=== PATIENT | female | born 1965 | race Caucasian/White ===

== ENCOUNTER 2017-05-03 19:44 | Emergency (ER) | payer MEDICAID ==
[~2017-05-03] VITALS: Ht 154.9 cm; Wt 90.9 kg
[2017-05-03 20:53] LABS: BASOPHILS % (AUTO) 0.3 % (0-1); EOSINOPHILS # (AUTO) 0.4 X10'3 (0-0.9); EOSINOPHILS % (AUTO) 3.8 % (0-6); HEMATOCRIT 34.5 % (35.0-45.0); HEMOGLOBIN 11.6 g/dl (12.0-16.0); LYMPHOCYTES # (AUTO) 1.9 X10'3 (1.1-4.8); LYMPHOCYTES % (AUTO) 16.7 % (21-51); MEAN CORPUSCULAR HEMOGLOBIN 28.3 PG (27.0-31.0); MEAN CORPUSCULAR HGB CONC 33.5 % (33.0-36.5); MEAN CORPUSCULAR VOLUME 84.5 FL (78-98); MEAN PLATELET VOLUME 9.6 FL (7.4-10.4); MONOCYTES # (AUTO) 0.8 X10'3 (0-0.9); MONOCYTES % (AUTO) 6.9 % (2-12); NEUTROPHILS # (AUTO) 8.4 X10'3 (1.8-7.7); NEUTROPHILS % (AUTO) 72.3 % (42-75); PLATELET COUNT 303 X10'3 (140-440); RED BLOOD COUNT 4.09 X10'6 (4.20-5.60); RED CELL DISTRIBUTION WIDTH 16.5 % (11.5-14.5); WHITE BLOOD COUNT 11.7 X10'3 (4.5-11.0)
[2017-05-03 21:02] LABS: PARTIAL THROMBOPLASTIN TIME 23 SECONDS (22-32); PROTHROMBIN TIME 9.9 SECONDS (9.0-12.0)
[2017-05-03 21:04] LABS: ALANINE AMINOTRANSFERASE 26 U/L (12-78); ALBUMIN 2.7 G/DL (3.4-5.0); ALBUMIN/GLOBULIN RATIO 0.6 (1.1-1.5); ALKALINE PHOSPHATASE 73 IU/L (46-116); ANION GAP 13 (8-16); ASPARTATE AMINO TRANSFERASE 10 U/L (10-37); BILIRUBIN,TOTAL 0.4 MG/DL (0.1-1.0); BLOOD UREA NITROGEN 13 MG/DL (7-18); BUN/CREATININE RATIO 11.1 (6.6-38.0); CALCIUM 8.5 MG/DL (8.5-10.1); CHLORIDE 108 MMOL/L (99-107); CREATININE 1.17 MG/DL (0.40-0.90); GLUCOSE 167 MG/DL (70-104); POTASSIUM 3.7 MMOL/L (3.5-5.1); SODIUM 143 MMOL/L (135-145); TOTAL CARBON DIOXIDE 22.1 MMOL/L (24-32); TOTAL PROTEIN 6.9 G/DL (6.4-8.2); eGFR 49 ML/MIN
[2017-05-03 21:29] LABS: CLARITY,URINE Clear (Clear); COLOR,URINE Yellow (Yellow); GLUCOSE, URINE Negative (Neg); KETONES,URINE Negative (Neg); LEUKOCYTE ESTERASE ,URINE Trace (Neg); NITRITES, URINE Negative (Neg); OCCULT BLOOD,URINE Negative (Neg); PROTEIN,URINE Negative (Neg)
[2017-05-03 21:32] LABS: UA COLLECTION TYPE CLN CATCH MIDSTREAM
[2017-05-03 21:49] LABS: MUCUS STRANDS MODERATE /LPF (Neg); SQUAMOUS EPITHELIAL CELL,UR MODERATE /LPF (FEW)
[2017-05-03 21:50] LABS: BACTERIA,URINE 1+ /HPF (Neg); RBC,URINE 0-2 /HPF (0-2); TRANSITIONAL EPI CELLS,URINE FEW /HPF
[2017-05-03 22:18] VITALS: BP 155/80
== END 2017-05-03 22:20 | disposition home or self-care (01) ==
LOC: ER 19:44
DX: E11.65 Type 2 diabetes mellitus with hyperglycemia (principal); R29.810 Facial weakness; Z88.5 Allergy status to narcotic agent
CPT/HCPCS: 36415; 70450; 71045; 80053; 81001; 85025; 85610; 85730; 87088; 93005; 99285

== ENCOUNTER 2018-10-15 12:35 | Emergency (ER) | payer MEDICAID, OTHER ==
[~2018-10-15] VITALS: Ht 154.9 cm; Wt 90.9 kg
[2018-10-15 12:56] VITALS: BP 150/83
[2018-10-15 13:31] LABS: BASOPHILS # (AUTO) 0.1 X10'3 (0-0.2); BASOPHILS % (AUTO) 0.7 % (0-1); EOSINOPHILS # (AUTO) 0.3 X10'3 (0-0.9); EOSINOPHILS % (AUTO) 2.3 % (0-6); HEMATOCRIT 38.7 % (35.0-45.0); HEMOGLOBIN 12.3 g/dl (12.0-16.0); LYMPHOCYTES # (AUTO) 2.4 X10'3 (1.1-4.8); LYMPHOCYTES % (AUTO) 20.5 % (21-51); MEAN CORPUSCULAR HEMOGLOBIN 26.9 PG (27.0-31.0); MEAN CORPUSCULAR HGB CONC 31.7 g/dL (33.0-36.5); MEAN CORPUSCULAR VOLUME 84.9 FL (78-98); MEAN PLATELET VOLUME 10.2 FL (7.4-10.4); MONOCYTES # (AUTO) 1.1 X10'3 (0-0.9); MONOCYTES % (AUTO) 9.5 % (2-12); NEUTROPHILS # (AUTO) 7.9 X10'3 (1.8-7.7); PLATELET COUNT 360 X10'3 (140-440); RED BLOOD COUNT 4.56 X10'6 (4.20-5.60); RED CELL DISTRIBUTION WIDTH 14.7 % (11.5-14.5); WHITE BLOOD COUNT 11.8 X10'3 (4.5-11.0)
[2018-10-15 13:40] LABS: ALANINE AMINOTRANSFERASE 20 U/L (12-78); ALBUMIN 3.2 G/DL (3.4-5.0); ALBUMIN/GLOBULIN RATIO 0.7 (1.1-1.5); ALKALINE PHOSPHATASE 94 IU/L (46-116); ANION GAP 8 (8-16); ASPARTATE AMINO TRANSFERASE 9 U/L (10-37); BILIRUBIN,TOTAL 0.4 MG/DL (0.1-1.0); BLOOD UREA NITROGEN 13 MG/DL (7-18); BUN/CREATININE RATIO 11.6 (6.6-38.0); CHLORIDE 107 MMOL/L (99-107); CREATININE 1.12 MG/DL (0.40-0.90); GLUCOSE 75 MG/DL (70-104); POTASSIUM 3.8 MMOL/L (3.5-5.1); SODIUM 141 MMOL/L (135-145); TOTAL CARBON DIOXIDE 26.3 MMOL/L (24-32); eGFR 51 ML/MIN
[2018-10-15 13:44] LABS: PARTIAL THROMBOPLASTIN TIME 27 SECONDS (22-32)
[2018-10-15] MEDS ORDERED: DILT30TA34 PO (13:49)
[2018-10-15] MEDS ORDERED: BECL7.3A INH (13:49)
[2018-10-15] MEDS ORDERED: LISI10TA4 PO (13:49)
[2018-10-15] MEDS ORDERED: PANT-47 PO (13:49)
== END 2018-10-15 14:00 | disposition home or self-care (01) ==
LOC: ER 12:35
DX: R07.89 Other chest pain (principal); L98.9 Disorder of the skin and subcutaneous tissue, unspecified; Z76.0 Encounter for issue of repeat prescription; I10 Essential (primary) hypertension; E11.9 Type 2 diabetes mellitus without complications; Z88.5 Allergy status to narcotic agent; Z79.899 Other long term (current) drug therapy
CPT/HCPCS: 36415; 71045; 80053; 84484; 85025; 85610; 85730; 93005; 99284

== ENCOUNTER 2018-10-27 13:53 | Inpatient (IN) | payer MEDICAID ==
[~2018-10-27] VITALS: Ht 154.9 cm; Wt 90.0 kg
[~2018-10-27 13:53] MED LIST: BECL7.3A INH; DILT30TA34 PO; LISI10TA4 PO; PANT-47 PO
[2018-10-27] MEDS ORDERED: diltiazem-D5W 125mg/125ml 125 ML IV ONE (14:03)
[2018-10-27] MEDS ORDERED: diltiazem-NS 100mg/100ml 100 ML IV ONE (14:05)
[2018-10-27] MEDS ORDERED: diltiazem 5mg/ml 5ml inj. IV ONE ×2 (14:05→14:55)
[2018-10-27 14:21] LABS: BASOPHILS # (AUTO) 0.1 X10'3 (0-0.2); BASOPHILS % (AUTO) 0.9 % (0-1); EOSINOPHILS # (AUTO) 0.3 X10'3 (0-0.9); EOSINOPHILS % (AUTO) 2.3 % (0-6); HEMATOCRIT 39.6 % (35.0-45.0); HEMOGLOBIN 12.8 g/dl (12.0-16.0); LYMPHOCYTES # (AUTO) 2.9 X10'3 (1.1-4.8); MEAN CORPUSCULAR HEMOGLOBIN 27.3 PG (27.0-31.0); MEAN CORPUSCULAR HGB CONC 32.2 g/dL (33.0-36.5); MEAN CORPUSCULAR VOLUME 84.6 FL (78-98); MEAN PLATELET VOLUME 11.2 FL (7.4-10.4); MONOCYTES # (AUTO) 0.9 X10'3 (0-0.9); NEUTROPHILS # (AUTO) 8.9 X10'3 (1.8-7.7); NEUTROPHILS % (AUTO) 67.8 % (42-75); PLATELET COUNT 337 X10'3 (140-440); RED BLOOD COUNT 4.68 X10'6 (4.20-5.60); RED CELL DISTRIBUTION WIDTH 15.3 % (11.5-14.5); WHITE BLOOD COUNT 13.1 X10'3 (4.5-11.0)
[2018-10-27 14:36] LABS: ALANINE AMINOTRANSFERASE 16 U/L (12-78); ALBUMIN 3.3 G/DL (3.4-5.0); ALBUMIN/GLOBULIN RATIO 0.6 (1.1-1.5); ALKALINE PHOSPHATASE 96 IU/L (46-116); ANION GAP 13 (8-16); ASPARTATE AMINO TRANSFERASE 6 U/L (10-37); BILIRUBIN,TOTAL 0.4 MG/DL (0.1-1.0); BLOOD UREA NITROGEN 10 MG/DL (7-18); BUN/CREATININE RATIO 7.2 (6.6-38.0); CALCIUM 9.3 MG/DL (8.5-10.1); CHLORIDE 106 MMOL/L (99-107); CREATININE 1.38 MG/DL (0.40-0.90); GLUCOSE 173 MG/DL (70-104); SODIUM 142 MMOL/L (135-145); TOTAL CARBON DIOXIDE 22.6 MMOL/L (24-32); TOTAL PROTEIN 8.4 G/DL (6.4-8.2); eGFR 40 ML/MIN
[2018-10-27 14:45] LABS: MAGNESIUM 1.6 MG/DL (1.5-2.4)
[2018-10-27] MEDS ORDERED: normal saline 1000ML IV soln IVB ONE (14:55)
--- NOTE | 2018-10-27 15:15 | NUR ---
DR. CHENEY GAVE VERBAL ORDER TO INCREASE CARDIZEM TO 10ML/HR.
[2018-10-27 15:17] LABS: LARGE PLATELETS FEW; PLATELET ESTIMATE NORMAL
[2018-10-27] MEDS ORDERED: metoprolol tartrate 1mg/ml inj IV ONE (15:40)
--- NOTE | 2018-10-27 15:46 | NUR ---
PT IS UNABLE TO VOID FOR UA, PT IS AGREEABLE TO HAVE FEMALE RN DO A STRAIGHT CATH.
[2018-10-27] MEDS ORDERED: magnesium Cl slow-release 64mg tablet PO PRN (16:10)
[2018-10-27] MEDS ORDERED: acetaminophen 325mg tablet PO PRN (16:10)
[2018-10-27] MEDS ORDERED: magnesium 2GM in 50ml NS 50 ML IV PRN (16:10)
[2018-10-27] MEDS ORDERED: potassium Cl 20 mEq SR tablet PO PRN ×2 (16:10)
[2018-10-27] MEDS ORDERED: magnesium hydroxide 30ml (MOM) UD suspension PO PRN (16:10)
[2018-10-27] MEDS ORDERED: magnesium 4gm in 100ml NS 100 ML IV PRN (16:10)
[2018-10-27] MEDS ORDERED: mag hydrox/Alum hydrox/simeth 30ml oral suspension PO PRN (16:10)
[2018-10-27] MEDS ORDERED: ondansetron/PF 4mg/2ml inj IV PRN (16:10)
[2018-10-27] MEDS ORDERED: potassium CL 10mEq/100ml bag 100 ML IV PRN ×2 (16:10)
[2018-10-27] MEDS ORDERED: enoxaparin 100mg/ml syringe SQ ONE (16:18)
[2018-10-27] MEDS ORDERED: dextrose ORAL solution 15 GM/59 ML bottle PO PRN ×2 (16:25)
[2018-10-27] MEDS ORDERED: dextrose 50%-water 50ml dispensing syringe IV PRN ×2 (16:25)
[2018-10-27] MEDS ORDERED: insulin Lispro (HumaLOG) vial - multi-dose SQ SCH (16:25)
[2018-10-27] MEDS ORDERED: MESSAGE TO PHARMACY PO ONE (16:25)
[2018-10-27] MEDS ORDERED: glucagon, human recombinant 1mg kit SUBCUT PRN (16:25)
[2018-10-27 16:30] LABS: URINE AMPHETAMINE SCREEN NEGATIVE (Neg); URINE BARBITUATE SCREEN NEGATIVE (Neg); URINE BENZODIAZEPINES SCREEN NEGATIVE (Neg); URINE CANNABINOID SCREEN NEGATIVE (Neg); URINE COCAINE SCREEN NEGATIVE (Neg); URINE METHADONE SCREEN NEGATIVE (Neg); URINE OPIATE SCREEN NEGATIVE (Neg); URINE PHENCYCLIDINE SCREEN NEGATIVE (Neg)
--- NOTE | 2018-10-27 16:32 | NUR ---
UPON ADMISSION TO ROOM PT REPORTED SOB FOR A FEW DAYS ACCOMPANIED BY RIB PAIN AND STERNAL, NON-RADIATING CP. PT WAS AFIB IN THE 150S, AND IS NOW MAINTAINING HR IN THE 80S. PT REPORTS CONTINUED SOB, AND CP. STATES SHE FEELS THAT HER HEART IS NOT RACING MUCH.
[2018-10-27 16:52] LABS: HEMOGLOBIN A1C 6.2 % (4.5-6.2)
[2018-10-27] MEDS ORDERED: APIX5TAB3 PO (16:53)
[2018-10-27] MEDS ORDERED: FLUC200T28 (17:06)
[2018-10-27] MEDS ORDERED: DILT30TA34 PO (17:06)
[2018-10-27] MEDS ORDERED: LISI-643 PO (17:06)
[2018-10-27] MEDS ORDERED: PANT-47 PO (17:06)
--- NOTE | 2018-10-27 17:14 | NUR ---
attempted to call lana, charge nurse wu requests for RN to call back in a few minutes.
[2018-10-27] MEDS: metoprolol tartrate 25mg tablet PO SCH ×2 (17:32→19:34)
[2018-10-27] MEDS: normal saline 1000ml 1,000 ML IV SCH (17:52)
[2018-10-27 17:58] VITALS: BP 143/85
--- NOTE | 2018-10-27 18:24 | NUR ---
Patient in room PCU 3011. I have received report from CHRISTIANNE Alan and had the opportunity to ask questions and assume patient care.
[2018-10-27 19:00] VITALS: BP 143/89
--- NOTE | 2018-10-27 19:00 | NUR ---
Patient in room PCU 3011. I have received report from CHRISTIANNE Colon and had the opportunity to ask questions and assume patient care.
[2018-10-27] MEDS: apixaban 5mg tablet PO SCH (19:33)
--- NOTE | 2018-10-27 20:34 | NUR ---
PAGER ID: [phone] MESSAGE: [id number] pt Fadi Cardizem titrated by ER to 15ml however my order says 5 ml, current HR in 70s and BP 135/81. Also is c/o pain and said Tylenol is not sufficient. May she please have a different med? - Dayanna [phone]
[2018-10-27] MEDS ORDERED: insulin glargine (Lantus) pen - multi-dose SQ SCH (21:00)
[2018-10-27] MEDS: diltiazem 30mg tablet PO SCH (22:41)
[2018-10-27] MEDS: HYDROcodone/acetaminophen 5mg/325mg tablet PO PRN (22:45)
[2018-10-27 23:00] VITALS: BP 110/64
[2018-10-28 02:00] VITALS: BP 108/69
[2018-10-28] MEDS: diltiazem 30mg tablet PO SCH ×2 (02:27→07:31)
[2018-10-28] MEDS: normal saline 1000ml 1,000 ML IV SCH ×2 (02:30→07:32)
[2018-10-28] MEDS: HYDROcodone/acetaminophen 5mg/325mg tablet PO PRN (02:50)
[2018-10-28 03:01] LABS: BASOPHILS # (AUTO) 0.1 X10'3 (0-0.2); BASOPHILS % (AUTO) 0.5 % (0-1); EOSINOPHILS # (AUTO) 0.3 X10'3 (0-0.9); EOSINOPHILS % (AUTO) 2.9 % (0-6); HEMATOCRIT 35.3 % (35.0-45.0); HEMOGLOBIN 11.3 g/dl (12.0-16.0); LYMPHOCYTES # (AUTO) 2.9 X10'3 (1.1-4.8); LYMPHOCYTES % (AUTO) 26.7 % (21-51); MEAN CORPUSCULAR HEMOGLOBIN 27.1 PG (27.0-31.0); MEAN CORPUSCULAR HGB CONC 32.1 g/dL (33.0-36.5); MEAN CORPUSCULAR VOLUME 84.5 FL (78-98); MEAN PLATELET VOLUME 11.3 FL (7.4-10.4); MONOCYTES # (AUTO) 0.9 X10'3 (0-0.9); MONOCYTES % (AUTO) 8.1 % (2-12); NEUTROPHILS # (AUTO) 6.8 X10'3 (1.8-7.7); NEUTROPHILS % (AUTO) 61.8 % (42-75); PLATELET COUNT 284 X10'3 (140-440); RED BLOOD COUNT 4.18 X10'6 (4.20-5.60); RED CELL DISTRIBUTION WIDTH 15.2 % (11.5-14.5)
[2018-10-28 03:17] LABS: ALANINE AMINOTRANSFERASE 18 U/L (12-78); ALBUMIN 2.7 G/DL (3.4-5.0); ALBUMIN/GLOBULIN RATIO 0.7 (1.1-1.5); ALKALINE PHOSPHATASE 79 IU/L (46-116); ANION GAP 11 (8-16); ASPARTATE AMINO TRANSFERASE 11 U/L (10-37); BILIRUBIN,TOTAL 0.5 MG/DL (0.1-1.0); BLOOD UREA NITROGEN 10 MG/DL (7-18); BUN/CREATININE RATIO 8.6 (6.6-38.0); CALCIUM 8.4 MG/DL (8.5-10.1); CHLORIDE 108 MMOL/L (99-107); CREATININE 1.16 MG/DL (0.40-0.90); GLUCOSE 106 MG/DL (70-104); MAGNESIUM 1.5 MG/DL (1.5-2.4); POTASSIUM 4.3 MMOL/L (3.5-5.1); SODIUM 141 MMOL/L (135-145); TOTAL PROTEIN 6.8 G/DL (6.4-8.2); eGFR 49 ML/MIN
--- NOTE | 2018-10-28 06:23 | NUR ---
Problems reprioritized. Patient report given, questions answered & plan of care reviewed with Marta.
--- NOTE | 2018-10-28 06:24 | NUR ---
Patient in room PCU 3009. I have received report from Dayanna FAUST and had the opportunity to ask questions and assume patient care.
[2018-10-28 07:00] VITALS: BP 124/69
[2018-10-28] MEDS: metoprolol tartrate 25mg tablet PO SCH (07:31)
[2018-10-28] MEDS: apixaban 5mg tablet PO SCH (07:31)
[2018-10-28] MEDS ORDERED: enoxaparin 60mg/0.6ml syringe SUBCUT SCH (08:00)
[2018-10-28] MEDS ORDERED: K and/or MAG REPLACEMENT MC SCH (08:00)
[2018-10-28] MEDS ORDERED: enoxaparin 30mg/0.3ml syringe SQ SCH (08:00)
--- NOTE | 2018-10-28 10:12 | NUR ---
Page sent to Dr. Khan: PAGER ID: [phone] MESSAGE: [id number] Purvi Aponte: Ambulated 300ft, highest HR was 115. Patient received 30mg diltiazem PO this AM. Thanks, Marta [phone]
[2018-10-28 11:00] VITALS: BP 112/80
[2018-10-28] MEDS ORDERED: METO25TA6 PO (11:41)
[2018-10-28] MEDS ORDERED: APIX5TAB3 PO (11:41)
[2018-10-28] MEDS ORDERED: DILT120C95 PO (11:41)
--- NOTE | 2018-10-28 15:11 | NUR ---
Patient discharged. All discharge information and education reviewed with patient before signing necessary paperwork. IV removed with catheter in tact, bedside monitoring removed, and all belongings packed up and sent with patient. Patient wheeled down to lobby via wheelchair, accompanied home by sister in law in private vehicle.
== END 2018-10-28 14:52 | disposition home or self-care (01) | DRG 201 ==
LOC: ER 13:54 → PCU 3S 17:40
PROVIDERS: ADMIT Family Medicine; ATTEND Family Medicine
DX: I48.91 Unspecified atrial fibrillation (principal); N17.0 Acute kidney failure with tubular necrosis; E11.22 Type 2 diabetes mellitus with diabetic chronic kidney disease; D72.829 Elevated white blood cell count, unspecified; D72.823 Leukemoid reaction; F12.90 Cannabis use, unspecified, uncomplicated; R00.0 Tachycardia, unspecified; I10 Essential (primary) hypertension; F43.9 Reaction to severe stress, unspecified; I16.0 Hypertensive urgency; Z88.6 Allergy status to analgesic agent; Z79.899 Other long term (current) drug therapy; Z79.01 Long term (current) use of anticoagulants; Z87.891 Personal history of nicotine dependence; Z91.19 Patient's noncompliance with other medical treatment and regimen; Z90.49 Acquired absence of other specified parts of digestive tract; Z98.891 History of uterine scar from previous surgery; Z80.9 Family history of malignant neoplasm, unspecified; I69.328 Other speech and language deficits following cerebral infarction; I69.311 Memory deficit following cerebral infarction; I69.320 Aphasia following cerebral infarction
CPT/HCPCS: 36415; 71045; 80053; 80305; 82948; 83036; 83605; 83735; 83880; 84484; 85025; 87040; 87081; 93005; 93306; 96365; 96375; 96376; 99291; G0378; J1815; J3490; J7030

== ENCOUNTER 2018-11-11 02:12 | Emergency (ER) | payer MEDICAID ==
[~2018-11-11] VITALS: Ht 154.9 cm; Wt 90.0 kg
[~2018-11-11 02:12] MED LIST changes: +APIX5TAB3 PO; -BECL7.3A INH; +DILT120C95 PO; -DILT30TA34 PO; -LISI10TA4 PO; +METO25TA6 PO
[2018-11-11 02:15] VITALS: BP 145/96
[2018-11-11] MEDS ORDERED: diltiazem 5mg/ml 5ml inj. IV ONE (02:25)
[2018-11-11] MEDS ORDERED: ipratropium/albuterol 3ml nebule NEB ONE (03:05)
[2018-11-11 03:06] LABS: BASOPHILS # (AUTO) 0.1 X10'3 (0-0.2); BASOPHILS % (AUTO) 0.9 % (0-1); EOSINOPHILS # (AUTO) 0.3 X10'3 (0-0.9); EOSINOPHILS % (AUTO) 1.9 % (0-6); HEMATOCRIT 36.3 % (35.0-45.0); HEMOGLOBIN 11.6 g/dl (12.0-16.0); LYMPHOCYTES # (AUTO) 2.8 X10'3 (1.1-4.8); LYMPHOCYTES % (AUTO) 21.2 % (21-51); MEAN CORPUSCULAR HEMOGLOBIN 26.7 PG (27.0-31.0); MEAN CORPUSCULAR VOLUME 83.4 FL (78-98); MEAN PLATELET VOLUME 9.9 FL (7.4-10.4); MONOCYTES # (AUTO) 1.2 X10'3 (0-0.9); MONOCYTES % (AUTO) 8.7 % (2-12); NEUTROPHILS % (AUTO) 67.3 % (42-75); PLATELET COUNT 370 X10'3 (140-440); RED BLOOD COUNT 4.35 X10'6 (4.20-5.60); RED CELL DISTRIBUTION WIDTH 15.5 % (11.5-14.5); WHITE BLOOD COUNT 13.3 X10'3 (4.5-11.0)
[2018-11-11 03:13] LABS: ALANINE AMINOTRANSFERASE 15 U/L (12-78); ALBUMIN 3.1 G/DL (3.4-5.0); ALBUMIN/GLOBULIN RATIO 0.7 (1.1-1.5); ALKALINE PHOSPHATASE 82 IU/L (46-116); ANION GAP 11 (8-16); ASPARTATE AMINO TRANSFERASE 10 U/L (10-37); BILIRUBIN,TOTAL 0.4 MG/DL (0.1-1.0); BLOOD UREA NITROGEN 16 MG/DL (7-18); BUN/CREATININE RATIO 12.5 (6.6-38.0); CALCIUM 8.4 MG/DL (8.5-10.1); CHLORIDE 111 MMOL/L (99-107); CREATININE 1.28 MG/DL (0.40-0.90); GLUCOSE 142 MG/DL (70-104); POTASSIUM 4.1 MMOL/L (3.5-5.1); SODIUM 143 MMOL/L (135-145); TOTAL CARBON DIOXIDE 20.7 MMOL/L (24-32); TOTAL PROTEIN 7.5 G/DL (6.4-8.2); eGFR 44 ML/MIN
[2018-11-11 03:40] LABS: PARTIAL THROMBOPLASTIN TIME 28 SECONDS (22-32)
[2018-11-11] MEDS ORDERED: METO25TA6 PO (12:19)
[2018-11-11] MEDS ORDERED: DILT-35 PO (12:21)
[2018-11-11] MEDS ORDERED: LISI10TA4 PO (12:28)
[2018-11-12] MEDS ORDERED: APIX5TAB3 PO (11:30)
[2018-11-12] MEDS ORDERED: IPRA3AMP9 NEB (11:30)
[2018-11-12] MEDS ORDERED: AZIT500T9 PO (11:32)
[2018-11-12] MEDS ORDERED: ATOR20TA66 PO (11:37)
== END 2018-11-11 03:56 | disposition home or self-care (01) ==
LOC: ER 02:12
DX: I48.2 Chronic atrial fibrillation (principal); I10 Essential (primary) hypertension; E11.9 Type 2 diabetes mellitus without complications; F12.90 Cannabis use, unspecified, uncomplicated; Z86.73 Personal history of transient ischemic attack (TIA), and cerebral infarction without residual deficits; Z88.5 Allergy status to narcotic agent; Z79.899 Other long term (current) drug therapy
CPT/HCPCS: 36415; 71045; 80053; 83880; 84484; 85025; 85610; 85730; 93005; 94640; 94760; 96374; 99284; J3490

== ENCOUNTER 2018-11-11 09:52 | Inpatient (IN) | payer MEDICAID ==
[~2018-11-11] VITALS: Ht 154.9 cm; Wt 95.5 kg
[2018-11-11 10:17] LABS: BASOPHILS # (AUTO) 0.1 X10'3 (0-0.2); BASOPHILS % (AUTO) 0.6 % (0-1); EOSINOPHILS # (AUTO) 0.2 X10'3 (0-0.9); EOSINOPHILS % (AUTO) 1.2 % (0-6); HEMATOCRIT 40.1 % (35.0-45.0); HEMOGLOBIN 12.7 g/dl (12.0-16.0); LYMPHOCYTES # (AUTO) 2.2 X10'3 (1.1-4.8); LYMPHOCYTES % (AUTO) 15.2 % (21-51); MEAN CORPUSCULAR HEMOGLOBIN 26.7 PG (27.0-31.0); MEAN CORPUSCULAR HGB CONC 31.7 g/dL (33.0-36.5); MEAN CORPUSCULAR VOLUME 84.3 FL (78-98); MEAN PLATELET VOLUME 9.9 FL (7.4-10.4); MONOCYTES % (AUTO) 6.8 % (2-12); NEUTROPHILS % (AUTO) 76.2 % (42-75); PLATELET COUNT 376 X10'3 (140-440); RED BLOOD COUNT 4.76 X10'6 (4.20-5.60); RED CELL DISTRIBUTION WIDTH 15.5 % (11.5-14.5); WHITE BLOOD COUNT 14.4 X10'3 (4.5-11.0)
[2018-11-11 10:34] LABS: PARTIAL THROMBOPLASTIN TIME 28 SECONDS (22-32)
[2018-11-11 10:39] LABS: ALANINE AMINOTRANSFERASE 17 U/L (12-78); ALBUMIN 3.3 G/DL (3.4-5.0); ALBUMIN/GLOBULIN RATIO 0.7 (1.1-1.5); ALKALINE PHOSPHATASE 91 IU/L (46-116); ANION GAP 11 (8-16); ASPARTATE AMINO TRANSFERASE 3 U/L (10-37); BILIRUBIN,TOTAL 0.5 MG/DL (0.1-1.0); BLOOD UREA NITROGEN 18 MG/DL (7-18); CALCIUM 8.6 MG/DL (8.5-10.1); CHLORIDE 108 MMOL/L (99-107); GLUCOSE 152 MG/DL (70-104); SODIUM 143 MMOL/L (135-145); TOTAL CARBON DIOXIDE 24.2 MMOL/L (24-32); TOTAL PROTEIN 8.1 G/DL (6.4-8.2); eGFR 47 ML/MIN
--- NOTE | 2018-11-11 10:56 | NUR ---
[facility] out to ct [facility]
[2018-11-11] MEDS ORDERED: iohexol 350MG/ML 100ml bottle IV ONE (11:02)
--- NOTE | 2018-11-11 11:13 | NUR ---
pt returns from ct
[2018-11-11] MEDS ORDERED: CefTRIAXone 2gm/D5W 50ml 50 ML IV ONE (11:50)
[2018-11-11] MEDS ORDERED: magnesium 2GM in 50ml NS 50 ML IV PRN (12:05)
[2018-11-11] MEDS ORDERED: dextrose ORAL solution 15 GM/59 ML bottle PO PRN ×2 (12:05)
[2018-11-11] MEDS ORDERED: metoprolol tartrate 1mg/ml inj IV ONE (12:05)
[2018-11-11] MEDS ORDERED: HYDROmorphone 1 mg/ml syringe IV PRN (12:05)
[2018-11-11] MEDS ORDERED: magnesium Cl slow-release 64mg tablet PO PRN (12:05)
[2018-11-11] MEDS ORDERED: magnesium 4gm in 100ml NS 100 ML IV PRN (12:05)
[2018-11-11] MEDS ORDERED: insulin Lispro (HumaLOG) vial - multi-dose SQ SCH (12:05)
[2018-11-11] MEDS ORDERED: potassium CL 10mEq/100ml bag 100 ML IV PRN ×2 (12:05)
[2018-11-11] MEDS ORDERED: glucagon, human recombinant 1mg kit SUBCUT PRN (12:05)
[2018-11-11] MEDS ORDERED: acetaminophen 325mg tablet PO PRN (12:05)
[2018-11-11] MEDS ORDERED: potassium Cl 20 mEq SR tablet PO PRN ×2 (12:05)
[2018-11-11] MEDS ORDERED: mag hydrox/Alum hydrox/simeth 30ml oral suspension PO PRN (12:05)
[2018-11-11] MEDS ORDERED: ondansetron/PF 4mg/2ml inj IV PRN (12:05)
[2018-11-11] MEDS ORDERED: dextrose 50%-water 50ml dispensing syringe IV PRN ×2 (12:05)
[2018-11-11] MEDS ORDERED: MESSAGE TO PHARMACY PO ONE (12:05)
[2018-11-11] MEDS ORDERED: magnesium hydroxide 30ml (MOM) UD suspension PO PRN (12:05)
[2018-11-11] MEDS ORDERED: METO25TA6 PO (12:19)
[2018-11-11] MEDS ORDERED: DILT-35 PO (12:21)
[2018-11-11] MEDS ORDERED: LISI10TA4 PO (12:28)
[2018-11-11] MEDS: normal saline 1000ml 1,000 ML IV SCH ×3 (12:41→22:53)
--- NOTE | 2018-11-11 14:15 | NUR ---
patient states " she can't remember when she had her last bowel movement." abd soft bowel sounds positive in all four quadrants. Addendum: 11/11/18 at 1612 by Charlee Stephens RN Amended: Links added.
[2018-11-11 15:00] VITALS: BP 132/72
--- NOTE | 2018-11-11 16:49 | NUR ---
PAGED DR. CANTU FOR AFIB 100-110. "Re: [place], in 307. patient is currently Afib 100-110 consistently. not currently on any of her home meds except Eliquis. thanks, Rosa VO [phone]"
[2018-11-11] MEDS: ipratropium/albuterol 3ml nebule NEB PRN (17:22)
[2018-11-11 18:00] VITALS: BP 151/104
--- NOTE | 2018-11-11 18:30 | NUR ---
Patient in room MED 307. I have received report from CHRISTIANNE Lee and had the opportunity to ask questions and assume patient care. Patient was laying with her on the hospital bed when I came into the room, I asked that he not do that and they were ok with it. Patient is A&O x3, HOPPER and is appropriate, her speech is slurred due to previous CVA and she has mild left sided weakness and a mild left facial droop. I darted the patient and brought her milk and crackers, I will continue to monitor.
[2018-11-11] MEDS: diltiazem CD 120mg capsule (once-daily) PO SCH (18:55)
[2018-11-11] MEDS: apixaban 5mg tablet PO SCH (19:49)
[2018-11-11] MEDS: HYDROmorphone inj. 0.5 MG/0.5 ML DISP.SYRIN IV PRN (19:49)
[2018-11-11] MEDS: metoprolol tartrate 25mg tablet PO SCH (19:50)
[2018-11-11 20:00] VITALS: BP 148/89
[2018-11-11] MEDS ORDERED: insulin glargine (Lantus) pen - multi-dose SQ SCH (21:00)
[2018-11-11 22:00] VITALS: BP 134/83
[2018-11-12 02:00] VITALS: BP 136/88
[2018-11-12] MEDS: HYDROmorphone inj. 0.5 MG/0.5 ML DISP.SYRIN IV PRN (04:36)
[2018-11-12 05:19] LABS: BASOPHILS # (AUTO) 0.1 X10'3 (0-0.2); BASOPHILS % (AUTO) 0.7 % (0-1); EOSINOPHILS # (AUTO) 0.3 X10'3 (0-0.9); EOSINOPHILS % (AUTO) 2.3 % (0-6); HEMATOCRIT 33.5 % (35.0-45.0); HEMOGLOBIN 10.5 g/dl (12.0-16.0); LYMPHOCYTES # (AUTO) 2.1 X10'3 (1.1-4.8); LYMPHOCYTES % (AUTO) 17.9 % (21-51); MEAN CORPUSCULAR HEMOGLOBIN 26.4 PG (27.0-31.0); MEAN CORPUSCULAR HGB CONC 31.2 g/dL (33.0-36.5); MEAN CORPUSCULAR VOLUME 84.3 FL (78-98); MEAN PLATELET VOLUME 10.6 FL (7.4-10.4); MONOCYTES % (AUTO) 8.3 % (2-12); NEUTROPHILS # (AUTO) 8.3 X10'3 (1.8-7.7); NEUTROPHILS % (AUTO) 70.8 % (42-75); PLATELET COUNT 306 X10'3 (140-440); RED BLOOD COUNT 3.97 X10'6 (4.20-5.60); RED CELL DISTRIBUTION WIDTH 15.6 % (11.5-14.5); WHITE BLOOD COUNT 11.7 X10'3 (4.5-11.0)
[2018-11-12 05:46] LABS: ALANINE AMINOTRANSFERASE 15 U/L (12-78); ALBUMIN 2.8 G/DL (3.4-5.0); ALBUMIN/GLOBULIN RATIO 0.7 (1.1-1.5); ALKALINE PHOSPHATASE 75 IU/L (46-116); ANION GAP 11 (8-16); ASPARTATE AMINO TRANSFERASE 7 U/L (10-37); BILIRUBIN,TOTAL 0.4 MG/DL (0.1-1.0); BLOOD UREA NITROGEN 13 MG/DL (7-18); BUN/CREATININE RATIO 11.6 (6.6-38.0); CALCIUM 8.5 MG/DL (8.5-10.1); CHLORIDE 108 MMOL/L (99-107); CHOL/HDL RATIO 5.8 (0.00-4.99); CHOLESTEROL 163 MG/DL (0-200); CREATININE 1.12 MG/DL (0.40-0.90); GLUCOSE 111 MG/DL (70-104); HDL CHOLESTEROL 28 MG/DL (35-60); LDL CHOLESTEROL 121 MG/DL (50-100); MAGNESIUM 1.6 MG/DL (1.5-2.4); POTASSIUM 3.9 MMOL/L (3.5-5.1); SODIUM 142 MMOL/L (135-145); TOTAL CARBON DIOXIDE 23.3 MMOL/L (24-32); TOTAL PROTEIN 6.8 G/DL (6.4-8.2); TRIGLYCERIDES 94 MG/DL (20-135); eGFR 51 ML/MIN
--- NOTE | 2018-11-12 06:27 | NUR ---
Problems reprioritized. Patient report given, questions answered & plan of care reviewed with CHRISTIANNE Staley.
[2018-11-12] MEDS: metoprolol tartrate 25mg tablet PO SCH (07:42)
[2018-11-12] MEDS: diltiazem CD 120mg capsule (once-daily) PO SCH (07:42)
[2018-11-12] MEDS: apixaban 5mg tablet PO SCH (07:43)
--- NOTE | 2018-11-12 07:57 | NUR ---
Patient in room MED 307. I have received report from Corrina FAUST and had the opportunity to ask questions and assume patient care.
[2018-11-12 07:59] LABS: LARGE PLATELETS FEW; PLATELET ESTIMATE NORMAL
[2018-11-12] MEDS ORDERED: diltiazem CD 120mg capsule (once-daily) PO SCH (08:00)
[2018-11-12] MEDS ORDERED: pantoprazole 40mg Tablet.DR PO SCH (08:00)
[2018-11-12] MEDS ORDERED: non-formulary drug (Diltiazem HCl (Diltiazem 24Hr ER) 1 CAP) PO SCH (08:00)
[2018-11-12] MEDS ORDERED: K and/or MAG REPLACEMENT MC SCH (08:00)
[2018-11-12 11:00] VITALS: BP 130/78
--- NOTE | 2018-11-12 11:02 | NUR ---
307-Triplet. Pt. is requesting a breathing treatment. Thank You.
[2018-11-12] MEDS: ipratropium/albuterol 3ml nebule NEB PRN (11:10)
[2018-11-12] MEDS ORDERED: APIX5TAB3 PO (11:30)
[2018-11-12] MEDS ORDERED: IPRA3AMP9 NEB (11:30)
[2018-11-12] MEDS ORDERED: AZIT500T9 PO (11:32)
[2018-11-12] MEDS ORDERED: ATOR20TA66 PO (11:37)
--- NOTE | 2018-11-12 14:11 | NUR ---
Pt. was given discharge instructions. All questions answered. Abril delivered bedside. Pt's PIV removed no complications.
[2018-11-12] MEDS ORDERED: ipratropium/albuterol 3ml nebule NEB SCH (15:00)
[2018-11-13] MEDS ORDERED: ATOR20TA66 PO (21:07)
[2018-11-13] MEDS ORDERED: APIX5TAB3 PO (21:07)
== END 2018-11-12 14:32 | disposition home or self-care (01) | DRG 139 ==
LOC: ER 09:53 → MED 3N 13:49
PROVIDERS: ADMIT Family Medicine; ATTEND Family Medicine
DX: J18.9 Pneumonia, unspecified organism (principal); J91.8 Pleural effusion in other conditions classified elsewhere; R91.8 Other nonspecific abnormal finding of lung field; E11.9 Type 2 diabetes mellitus without complications; E78.5 Hyperlipidemia, unspecified; I10 Essential (primary) hypertension; I48.2 Chronic atrial fibrillation; Z79.899 Other long term (current) drug therapy; Z79.01 Long term (current) use of anticoagulants; Z88.5 Allergy status to narcotic agent; I69.320 Aphasia following cerebral infarction; Z90.49 Acquired absence of other specified parts of digestive tract; Z91.19 Patient's noncompliance with other medical treatment and regimen
CPT/HCPCS: 36415; 71275; 80053; 80061; 82948; 83036; 83605; 83735; 83880; 84145; 84484; 85025; 85610; 85730; 87040; 87081; 93005; 94640; 94760; 96365; 96375; 99285; G0378; J0696; J1170; J1815; J2405; J3490; J7030; Q9967

== ENCOUNTER 2018-11-13 18:09 | Inpatient (IN) | payer MEDICAID ==
[~2018-11-13] VITALS: Ht 154.9 cm; Wt 91.0 kg
[~2018-11-13 18:09] MED LIST changes: +ATOR20TA66 PO; +AZIT500T9 PO; +DILT-35 PO; -DILT120C95 PO; +IPRA3AMP9 NEB; +LISI10TA4 PO
[2018-11-13 18:43] LABS: BASOPHILS # (AUTO) 0.2 X10'3 (0-0.2); BASOPHILS % (AUTO) 1.2 % (0-1); EOSINOPHILS # (AUTO) 0.2 X10'3 (0-0.9); EOSINOPHILS % (AUTO) 1.3 % (0-6); HEMATOCRIT 35.9 % (35.0-45.0); HEMOGLOBIN 11.4 g/dl (12.0-16.0); LYMPHOCYTES # (AUTO) 2.5 X10'3 (1.1-4.8); LYMPHOCYTES % (AUTO) 17.2 % (21-51); MEAN CORPUSCULAR HEMOGLOBIN 26.6 PG (27.0-31.0); MEAN CORPUSCULAR HGB CONC 31.7 g/dL (33.0-36.5); MEAN CORPUSCULAR VOLUME 83.8 FL (78-98); MEAN PLATELET VOLUME 10.5 FL (7.4-10.4); MONOCYTES % (AUTO) 6.9 % (2-12); NEUTROPHILS # (AUTO) 10.8 X10'3 (1.8-7.7); NEUTROPHILS % (AUTO) 73.4 % (42-75); PLATELET COUNT 359 X10'3 (140-440); RED BLOOD COUNT 4.28 X10'6 (4.20-5.60); RED CELL DISTRIBUTION WIDTH 15.8 % (11.5-14.5); WHITE BLOOD COUNT 14.7 X10'3 (4.5-11.0)
[2018-11-13] MEDS ORDERED: iohexol 350MG/ML 100ml bottle IV ONE (19:46)
--- NOTE | 2018-11-13 20:01 | NUR ---
STROKE ALERT SUMMARY Pt. initially classified as a level 1, however with further inspection her LKN was well outside the TPA time frame, at about 1300 this afternoon. At the time I assessed her, her primary reported symptom, drooping of right eye, had resolved. She does however has slurred speech and possible decreased sensation of the left side of the face. She has had several prior strokes and TIAs, and has chronic slurred speech. Her reports that he "thinks it is worse now." For these reasons teleneurology was consulted and recommendations made to Dr. Govea, the ED physician.
[2018-11-13 20:06] LABS: ALANINE AMINOTRANSFERASE 17 U/L (12-78); ALBUMIN 3.1 G/DL (3.4-5.0); ALBUMIN/GLOBULIN RATIO 0.7 (1.1-1.5); ALKALINE PHOSPHATASE 81 IU/L (46-116); ANION GAP 7 (8-16); ASPARTATE AMINO TRANSFERASE 9 U/L (10-37); BILIRUBIN,TOTAL 0.6 MG/DL (0.1-1.0); BLOOD UREA NITROGEN 15 MG/DL (7-18); BUN/CREATININE RATIO 11.7 (6.6-38.0); CALCIUM 8.5 MG/DL (8.5-10.1); CHLORIDE 105 MMOL/L (99-107); CREATININE 1.28 MG/DL (0.40-0.90); GLUCOSE 104 MG/DL (70-104); POTASSIUM 3.5 MMOL/L (3.5-5.1); SODIUM 140 MMOL/L (135-145); TOTAL CARBON DIOXIDE 27.7 MMOL/L (24-32); TOTAL PROTEIN 7.4 G/DL (6.4-8.2); eGFR 44 ML/MIN
--- NOTE | 2018-11-13 20:07 | NUR ---
Swallow: remain NPO at this time as more testing is requested to evaluate possible stroke. Speech more slurred than normal per .
[2018-11-13 20:09] LABS: TROPONIN I < 0.04 NG/ML (0.0-0.05)
[2018-11-13 20:10] LABS: PARTIAL THROMBOPLASTIN TIME 27 SECONDS (22-32)
[2018-11-13] MEDS ORDERED: ATOR20TA66 PO (21:07)
[2018-11-13] MEDS ORDERED: APIX5TAB3 PO (21:07)
[2018-11-13] MEDS ORDERED: aspirin 325mg tablet PO ONE (21:10)
[2018-11-13] MEDS ORDERED: CefTRIAXone 2gm/D5W 50ml 50 ML IV ONE (21:35)
[2018-11-13] MEDS ORDERED: magnesium hydroxide 30ml (MOM) UD suspension PO PRN (22:35)
[2018-11-13] MEDS ORDERED: ondansetron/PF 4mg/2ml inj IV PRN (22:35)
[2018-11-13] MEDS ORDERED: mag hydrox/Alum hydrox/simeth 30ml oral suspension PO PRN (22:35)
[2018-11-13] MEDS ORDERED: acetaminophen 325mg tablet PO PRN (22:35)
--- NOTE | 2018-11-13 22:49 | NUR ---
pt took aspirin with 50 ml of water with no signs of swallowing difficulty.
--- NOTE | 2018-11-13 22:51 | NUR ---
Received report from Bebeto FAUST in ER. Reviewed plan of care with questions and concerns addressed. Advised him that a nursing swallow should be documented that patient has no swallowing difficulty prior to his administration of ASA.
[2018-11-13 23:15] VITALS: BP 153/109
[2018-11-13] MEDS ORDERED: diltiazem 30mg tablet PO ONE (23:25)
[2018-11-13] MEDS: normal saline 1000ml 1,000 ML IV SCH (23:34)
[2018-11-13] MEDS: HYDROcodone/acetaminophen 5mg/325mg tablet PO PRN (23:52)
[2018-11-14] VITALS (8 sets, daily range): BP systolic 91–135; BP diastolic 54–93
[2018-11-14] MEDS: albuterol 2.5 MG/3 ML nebule NEB PRN ×2 (03:05→20:00)
[2018-11-14] MEDS: HYDROcodone/acetaminophen 5mg/325mg tablet PO PRN ×4 (06:06→19:41)
[2018-11-14 06:07] LABS: BASOPHILS % (AUTO) 0.3 % (0-1); EOSINOPHILS # (AUTO) 0.3 X10'3 (0-0.9); EOSINOPHILS % (AUTO) 2.3 % (0-6); HEMATOCRIT 33.3 % (35.0-45.0); HEMOGLOBIN 10.5 g/dl (12.0-16.0); LYMPHOCYTES # (AUTO) 2.3 X10'3 (1.1-4.8); LYMPHOCYTES % (AUTO) 20.3 % (21-51); MEAN CORPUSCULAR HEMOGLOBIN 26.5 PG (27.0-31.0); MEAN CORPUSCULAR HGB CONC 31.5 g/dL (33.0-36.5); MEAN CORPUSCULAR VOLUME 84.2 FL (78-98); MEAN PLATELET VOLUME 10.3 FL (7.4-10.4); MONOCYTES # (AUTO) 1.1 X10'3 (0-0.9); MONOCYTES % (AUTO) 9.7 % (2-12); NEUTROPHILS # (AUTO) 7.8 X10'3 (1.8-7.7); NEUTROPHILS % (AUTO) 67.4 % (42-75); PLATELET COUNT 311 X10'3 (140-440); RED BLOOD COUNT 3.96 X10'6 (4.20-5.60); RED CELL DISTRIBUTION WIDTH 15.6 % (11.5-14.5); WHITE BLOOD COUNT 11.6 X10'3 (4.5-11.0)
--- NOTE | 2018-11-14 06:12 | NUR ---
Report given to Delilah FAUST and Tamara FAUST.
[2018-11-14 06:29] LABS: ALANINE AMINOTRANSFERASE 14 U/L (12-78); ALBUMIN 2.9 G/DL (3.4-5.0); ALBUMIN/GLOBULIN RATIO 0.7 (1.1-1.5); ALKALINE PHOSPHATASE 76 IU/L (46-116); ANION GAP 10 (8-16); ASPARTATE AMINO TRANSFERASE 9 U/L (10-37); BILIRUBIN,TOTAL 0.4 MG/DL (0.1-1.0); BLOOD UREA NITROGEN 14 MG/DL (7-18); BUN/CREATININE RATIO 12.5 (6.6-38.0); CALCIUM 8.1 MG/DL (8.5-10.1); CHLORIDE 109 MMOL/L (99-107); CHOL/HDL RATIO 5.1 (0.00-4.99); CHOLESTEROL 153 MG/DL (0-200); CREATININE 1.12 MG/DL (0.40-0.90); GLUCOSE 104 MG/DL (70-104); HDL CHOLESTEROL 30 MG/DL (35-60); LDL CHOLESTEROL 114 MG/DL (50-100); POTASSIUM 3.7 MMOL/L (3.5-5.1); SODIUM 143 MMOL/L (135-145); TOTAL CARBON DIOXIDE 23.9 MMOL/L (24-32); TRIGLYCERIDES 81 MG/DL (20-135); eGFR 51 ML/MIN
--- NOTE | 2018-11-14 06:30 | NUR ---
received report from henok casas
[2018-11-14] MEDS: pantoprazole 40mg Tablet.DR PO SCH (07:55)
[2018-11-14] MEDS: diltiazem CD 120mg capsule (once-daily) PO SCH (07:55)
[2018-11-14] MEDS: aspirin 325mg tablet PO SCH (07:55)
[2018-11-14] MEDS: atorvastatin 20mg tablet PO SCH (07:55)
[2018-11-14] MEDS: metoprolol tartrate 25mg tablet PO SCH ×2 (07:56→20:58)
[2018-11-14] MEDS: lisinopril 10 MG tablet PO SCH (07:57)
[2018-11-14] MEDS: CefTRIAXone/D5W-Rocephin 1gm 50 ML IV SCH (07:58)
--- NOTE | 2018-11-14 10:12 | NUR ---
Cardiac diet ed consult: Pt admit w/ stroke symptoms hx meth and DM A1C <7. Lipid panel WNL. No need for cardiac/DM diet eds at this time. Addendum: 11/14/18 at [address] Amended: Links added.
--- NOTE | 2018-11-14 12:00 | NUR ---
pt demands that her iv is to be removed because pt is complaining that the iv site is painful, iv working well, pt educated on the importance of her iv abx and that nursing staff is able to start a new iv, pt is currently refusing to have another iv placed, notified hospitalist, continue to educate and monitor pt
[2018-11-14] MEDS ORDERED: LORazepam 1 MG tablet PO ONE (16:05)
--- NOTE | 2018-11-14 18:19 | NUR ---
gave report to henok ellison
--- NOTE | 2018-11-14 18:38 | NUR ---
Patient in room ORTHO 4009. I have received report from CHRISTIANNE Mazariegos and had the opportunity to ask questions and assume patient care.
--- NOTE | 2018-11-14 21:03 | NUR ---
Notified Dr. Rodriguez of pts chest pain and EKG results. no new orders. pts pain was 10/10 now down to 3/10, no new orders. vss.
[2018-11-14] MEDS: HYDROcodone/acetaminophen 10/325mg tab PO PRN (23:39)
[2018-11-15 02:00] VITALS: BP 127/90
[2018-11-15] MEDS: HYDROcodone/acetaminophen 10/325mg tab PO PRN ×3 (05:59→20:09)
--- NOTE | 2018-11-15 06:22 | NUR ---
Problems reprioritized. Patient report given, questions answered & plan of care reviewed with CHRISTIANNE Lui and CHRISTIANNE Burks.
[2018-11-15 06:51] VITALS: BP 114/63
--- NOTE | 2018-11-15 06:52 | NUR ---
Patient in room ORTHO 4009. I have received report from Cara FAUST and had the opportunity to ask questions and assume patient care.
[2018-11-15 06:55] VITALS: BP 139/84
[2018-11-15 07:05] LABS: BASOPHILS # (AUTO) 0.1 X10'3 (0-0.2); EOSINOPHILS # (AUTO) 0.3 X10'3 (0-0.9); EOSINOPHILS % (AUTO) 2.7 % (0-6); HEMATOCRIT 35.3 % (35.0-45.0); HEMOGLOBIN 11.1 g/dl (12.0-16.0); MEAN CORPUSCULAR HEMOGLOBIN 26.7 PG (27.0-31.0); MEAN CORPUSCULAR HGB CONC 31.5 g/dL (33.0-36.5); MEAN CORPUSCULAR VOLUME 84.7 FL (78-98); MEAN PLATELET VOLUME 10.7 FL (7.4-10.4); MONOCYTES % (AUTO) 7.8 % (2-12); NEUTROPHILS % (AUTO) 72.5 % (42-75); PLATELET COUNT 329 X10'3 (140-440); RED BLOOD COUNT 4.17 X10'6 (4.20-5.60); RED CELL DISTRIBUTION WIDTH 16.1 % (11.5-14.5); WHITE BLOOD COUNT 12.4 X10'3 (4.5-11.0)
[2018-11-15 07:18] LABS: ALANINE AMINOTRANSFERASE 15 U/L (12-78); ALBUMIN 3.2 G/DL (3.4-5.0); ALBUMIN/GLOBULIN RATIO 0.7 (1.1-1.5); ALKALINE PHOSPHATASE 86 IU/L (46-116); ANION GAP 9 (8-16); ASPARTATE AMINO TRANSFERASE 11 U/L (10-37); BILIRUBIN,TOTAL 0.4 MG/DL (0.1-1.0); BLOOD UREA NITROGEN 16 MG/DL (7-18); BUN/CREATININE RATIO 13.9 (6.6-38.0); CALCIUM 8.9 MG/DL (8.5-10.1); CHLORIDE 107 MMOL/L (99-107); CREATININE 1.15 MG/DL (0.40-0.90); GLUCOSE 113 MG/DL (70-104); POTASSIUM 4.3 MMOL/L (3.5-5.1); SODIUM 141 MMOL/L (135-145); TOTAL CARBON DIOXIDE 24.7 MMOL/L (24-32); TOTAL PROTEIN 7.9 G/DL (6.4-8.2); eGFR 50 ML/MIN
[2018-11-15] MEDS: pantoprazole 40mg Tablet.DR PO SCH (07:23)
[2018-11-15] MEDS: atorvastatin 20mg tablet PO SCH (07:24)
[2018-11-15] MEDS: diltiazem CD 120mg capsule (once-daily) PO SCH (07:24)
[2018-11-15] MEDS: CefTRIAXone/D5W-Rocephin 1gm 50 ML IV SCH (07:26)
[2018-11-15] MEDS: metoprolol tartrate 25mg tablet PO SCH ×2 (07:29→20:10)
[2018-11-15] MEDS: lisinopril 10 MG tablet PO SCH (07:29)
[2018-11-15] MEDS: albuterol 2.5 MG/3 ML nebule NEB PRN (07:33)
[2018-11-15] MEDS: aspirin 325mg tablet PO SCH (09:06)
[2018-11-15 09:52] LABS: PLATELET ESTIMATE NORMAL
[2018-11-15 09:53] LABS: GIANT PLATELET FEW; LARGE PLATELETS MODERATE
[2018-11-15 10:00] VITALS: BP 133/92
[2018-11-15 18:00] VITALS: BP 107/88
--- NOTE | 2018-11-15 18:08 | NUR ---
Patient in room ORTHO 4009. I have received report from Cara FAUST and had the opportunity to ask questions and assume patient care.
--- NOTE | 2018-11-15 18:12 | NUR ---
I have reviewed and agree with all interventions, assessments performed and documented by Vitaliy FAUST.
--- NOTE | 2018-11-15 18:20 | NUR ---
Patient in room ORTHO 4009. I have received report from SaniaRN and VitaliyRN and had the opportunity to ask questions and assume patient care.
[2018-11-15] MEDS: lactobacillus rhamnosus 10,000 MMU CELLS/CAPSULE PO SCH (20:07)
[2018-11-15] MEDS: apixaban 5mg tablet PO SCH (20:07)
[2018-11-15 22:00] VITALS: BP 124/73
[2018-11-15] MEDS: normal saline 1000ml 1,000 ML IV SCH (22:35)
--- NOTE | 2018-11-15 22:37 | NUR ---
Pt c/o upper back pain 09/03 gave her a warm blanket for the pain since she is not due for any pain medicine at this time.
[2018-11-16] MEDS: HYDROcodone/acetaminophen 10/325mg tab PO PRN ×2 (00:31→05:17)
[2018-11-16 06:11] LABS: BASOPHILS # (AUTO) 0.1 X10'3 (0-0.2); EOSINOPHILS # (AUTO) 0.3 X10'3 (0-0.9); EOSINOPHILS % (AUTO) 2.9 % (0-6); HEMATOCRIT 34.7 % (35.0-45.0); HEMOGLOBIN 11.1 g/dl (12.0-16.0); LYMPHOCYTES # (AUTO) 1.9 X10'3 (1.1-4.8); MEAN CORPUSCULAR HEMOGLOBIN 26.7 PG (27.0-31.0); MEAN CORPUSCULAR HGB CONC 31.9 g/dL (33.0-36.5); MEAN CORPUSCULAR VOLUME 83.9 FL (78-98); MEAN PLATELET VOLUME 9.9 FL (7.4-10.4); MONOCYTES # (AUTO) 1.1 X10'3 (0-0.9); MONOCYTES % (AUTO) 9.6 % (2-12); NEUTROPHILS # (AUTO) 7.9 X10'3 (1.8-7.7); NEUTROPHILS % (AUTO) 69.5 % (42-75); PLATELET COUNT 326 X10'3 (140-440); RED BLOOD COUNT 4.13 X10'6 (4.20-5.60); RED CELL DISTRIBUTION WIDTH 15.8 % (11.5-14.5); WHITE BLOOD COUNT 11.4 X10'3 (4.5-11.0)
--- NOTE | 2018-11-16 06:15 | NUR ---
Problems reprioritized. Patient report given, questions answered & plan of care reviewed with CHRISTIANNE Lui and CHRISTIANNE Burks.
[2018-11-16 06:29] LABS: ALANINE AMINOTRANSFERASE 16 U/L (12-78); ALBUMIN 3.1 G/DL (3.4-5.0); ALBUMIN/GLOBULIN RATIO 0.7 (1.1-1.5); ALKALINE PHOSPHATASE 85 IU/L (46-116); ANION GAP 8 (8-16); ASPARTATE AMINO TRANSFERASE 12 U/L (10-37); BILIRUBIN,TOTAL 0.5 MG/DL (0.1-1.0); BLOOD UREA NITROGEN 15 MG/DL (7-18); BUN/CREATININE RATIO 12.5 (6.6-38.0); CALCIUM 8.5 MG/DL (8.5-10.1); CHLORIDE 108 MMOL/L (99-107); GLUCOSE 105 MG/DL (70-104); SODIUM 143 MMOL/L (135-145); TOTAL CARBON DIOXIDE 27.3 MMOL/L (24-32); TOTAL PROTEIN 7.6 G/DL (6.4-8.2); eGFR 47 ML/MIN
[2018-11-16 06:44] VITALS: BP 149/81
--- NOTE | 2018-11-16 06:45 | NUR ---
Patient in room ORTHO 4009. I have received report from Silvia FAUST and had the opportunity to ask questions and assume patient care.
[2018-11-16] MEDS: apixaban 5mg tablet PO SCH (07:23)
[2018-11-16] MEDS: lactobacillus rhamnosus 10,000 MMU CELLS/CAPSULE PO SCH (07:23)
[2018-11-16] MEDS: pantoprazole 40mg Tablet.DR PO SCH (07:23)
[2018-11-16] MEDS: diltiazem CD 120mg capsule (once-daily) PO SCH (07:23)
[2018-11-16] MEDS: metoprolol tartrate 25mg tablet PO SCH (07:26)
[2018-11-16] MEDS: atorvastatin 20mg tablet PO SCH (07:27)
[2018-11-16] MEDS: CefTRIAXone/D5W-Rocephin 1gm 50 ML IV SCH (07:27)
[2018-11-16] MEDS: lisinopril 10 MG tablet PO SCH (07:27)
[2018-11-16 10:00] VITALS: BP 130/72
[2018-11-16] MEDS: aspirin 325mg tablet PO SCH (11:01)
--- NOTE | 2018-11-16 14:00 | NUR ---
Pt left home with spouse in his car. personnel items with Pt.
--- NOTE | 2018-11-16 15:20 | NUR ---
I have reviewed and agree with all interventions, assessments performed and documented by Vitaliy FAUST.
== END 2018-11-16 14:00 | disposition home or self-care (01) | DRG 201 ==
LOC: ER 18:10 → ORTHO 4S 23:04 → CMPBEDREQ 23:08
PROVIDERS: ADMIT Internal Medicine; ATTEND Internal Medicine
DX: I48.91 Unspecified atrial fibrillation (principal); J18.1 Lobar pneumonia, unspecified organism; N17.9 Acute kidney failure, unspecified; I10 Essential (primary) hypertension; G40.909 Epilepsy, unspecified, not intractable, without status epilepticus; E11.9 Type 2 diabetes mellitus without complications; R59.0 Localized enlarged lymph nodes; K21.9 Gastro-esophageal reflux disease without esophagitis; Z79.01 Long term (current) use of anticoagulants; Z86.73 Personal history of transient ischemic attack (TIA), and cerebral infarction without residual deficits; Z79.899 Other long term (current) drug therapy; Z88.8 Allergy status to other drugs, medicaments and biological substances; Z88.5 Allergy status to narcotic agent; Z80.9 Family history of malignant neoplasm, unspecified
CPT/HCPCS: 36415; 70450; 70496; 70498; 70551; 71045; 80053; 80061; 82948; 83605; 84145; 84484; 85025; 85610; 85730; 87040; 87081; 92507; 92508; 92616; 93005; 93308; 93880; 94640; 94760; 97110; 97116; 97161; 97530; 99285; G0378; J0696; J7030; Q9967

== ENCOUNTER 2019-04-11 12:52 | Emergency (ER) | payer MEDICAID ==
[~2019-04-11] VITALS: Ht 154.9 cm; Wt 103.5 kg
[~2019-04-11 12:52] MED LIST changes: -AZIT500T9 PO
[2019-04-11] MEDS ORDERED: normal saline 1000ML IV soln IVB ONE (13:35)
[2019-04-11 14:04] LABS: BASOPHILS # (AUTO) 0.2 X10'3 (0-0.2); BASOPHILS % (AUTO) 1.2 % (0-1); EOSINOPHILS # (AUTO) 0.3 X10'3 (0-0.9); EOSINOPHILS % (AUTO) 2.2 % (0-6); HEMATOCRIT 36.9 % (35.0-45.0); HEMOGLOBIN 11.8 g/dl (12.0-16.0); LYMPHOCYTES # (AUTO) 2.1 X10'3 (1.1-4.8); MEAN CORPUSCULAR HEMOGLOBIN 26.2 PG (27.0-31.0); MEAN CORPUSCULAR HGB CONC 32.1 g/dL (33.0-36.5); MEAN CORPUSCULAR VOLUME 81.7 FL (78-98); MEAN PLATELET VOLUME 10.5 FL (7.4-10.4); MONOCYTES # (AUTO) 1.1 X10'3 (0-0.9); MONOCYTES % (AUTO) 8.1 % (2-12); NEUTROPHILS # (AUTO) 9.4 X10'3 (1.8-7.7); NEUTROPHILS % (AUTO) 72.5 % (42-75); PLATELET COUNT 314 X10'3 (140-440); RED BLOOD COUNT 4.51 X10'6 (4.20-5.60); RED CELL DISTRIBUTION WIDTH 17.5 % (11.5-14.5)
[2019-04-11 14:18] LABS: ALANINE AMINOTRANSFERASE 17 U/L (12-78); ALBUMIN 3.1 G/DL (3.4-5.0); ALBUMIN/GLOBULIN RATIO 0.8 (1.1-1.5); ALKALINE PHOSPHATASE 101 IU/L (46-116); ANION GAP 10 (8-16); ASPARTATE AMINO TRANSFERASE 8 U/L (10-37); BILIRUBIN,TOTAL 0.8 MG/DL (0.1-1.0); BLOOD UREA NITROGEN 14 MG/DL (7-18); BUN/CREATININE RATIO 9.9 (6.6-38.0); CALCIUM 8.8 MG/DL (8.5-10.1); CHLORIDE 111 MMOL/L (99-107); CREATININE 1.42 MG/DL (0.40-0.90); GLUCOSE 153 MG/DL (70-104); POTASSIUM 4.1 MMOL/L (3.5-5.1); SODIUM 145 MMOL/L (135-145); TOTAL CARBON DIOXIDE 24.5 MMOL/L (24-32); TOTAL PROTEIN 7.2 G/DL (6.4-8.2); eGFR 39 ML/MIN
--- NOTE | 2019-04-11 15:05 | NUR ---
[facility] (PC) called and informed about Patient's status, the meds she took, and her current vital signs and lab values. PC stated that other than the increased risk of bleeding from the double dose of Eliquis, the Double dose of Cardizem and Diltiazem (if she is still taking meds from both bottles) might cause her to become hypotensive and bradycardic. PC said that the peak of the Diltiazem/Cardizem is 10-14 hours, but that the patient's current vital signs are not too bad and that if we wanted we could send the patient home (as long as someone was at home to watch her, and make sure she doesn't fall over or feel faint and dizzy). If patient does not have anyone home to keep an eye on her, PC recommends us to watch her for 2 more hours or so to make sure that she does not become hypotensive/bradycardic. If so, we can use Calcium to offset.
[2019-04-11 18:16] VITALS: BP 112/55
== END 2019-04-11 18:52 | disposition home or self-care (01) ==
LOC: ER 12:52
DX: T46.1X1A Poisoning by calcium-channel blockers, accidental (unintentional), initial encounter (principal); R42 Dizziness and giddiness; I48.91 Unspecified atrial fibrillation; E78.00 Pure hypercholesterolemia, unspecified; I10 Essential (primary) hypertension; J44.9 Chronic obstructive pulmonary disease, unspecified; K21.9 Gastro-esophageal reflux disease without esophagitis; E11.9 Type 2 diabetes mellitus without complications; F12.90 Cannabis use, unspecified, uncomplicated; R00.0 Tachycardia, unspecified; Z88.6 Allergy status to analgesic agent; Z79.899 Other long term (current) drug therapy; Z86.73 Personal history of transient ischemic attack (TIA), and cerebral infarction without residual deficits; Y92.89 Other specified places as the place of occurrence of the external cause
CPT/HCPCS: 36415; 80053; 84484; 85025; 85610; 93005; 96360; 99284; J7030